=== PATIENT | female | born 1970 | race Caucasian/White ===

== ENCOUNTER 2016-12-05 07:36 | Day surgery (SDC) | payer OTHER ==
[~2016-12-05 07:36] MED LIST: CEFAZOLIN SODIUM 2 GRAM PREMIX 100 ML IV ONE; IV START KIT ONE; KETAMINE HCL UD SYRINGE 100 MG/2 ML IV ONE; LACTATED RINGERS 1,000 ML ONE; MIDAZOLAM HCL 5 MG/5 ML VIAL ONE
[2016-12-05] MEDS ORDERED: CEFAZOLIN SODIUM 2 GRAM PREMIX 100 ML IV PRN (07:45)
[2016-12-05] MEDS ORDERED: BUPIVACAINE (LIPOSOMAL) PF 1.3% 20 ML VIAL IF ONE ×2 (07:50→08:18)
[2016-12-05] MEDS ORDERED: METOCLOPRAMIDE HCL 5 MG/ML 2ML VIAL ONE (08:21)
[2016-12-05] MEDS ORDERED: PROPOFOL 20 ML IV ONE (08:21)
[2016-12-05] MEDS ORDERED: HYDROMORPHONE HCL 2 MG/ML SYRINGE ONE (08:21)
[2016-12-05] MEDS ORDERED: DIPHENHYDRAMINE HCL 50 MG/1 ML VIAL ONE (08:21)
[2016-12-05] MEDS ORDERED: EPHEDRINE SULFATE UD SYR 25 MG 25 MG/5 ML SYRINGE IV ONE (08:44)
[2016-12-05] MEDS ORDERED: PROMETHAZINE HCL 25 MG/ML VIAL IM PRN (08:55)
[2016-12-05] MEDS ORDERED: ONDANSETRON 4 MG/2ML 2 ML VIAL IV PRN ×2 (08:55→11:39)
[2016-12-05] MEDS ORDERED: NALOXONE HCL 0.4 MG/ML VIAL IV PRN (08:55)
[2016-12-05] MEDS ORDERED: MEPERIDINE 25 MG/ML SYRINGE IV PRN (08:55)
[2016-12-05] MEDS ORDERED: ATROPINE SULFATE 0.4 MG/1 ML VIAL IV PRN (08:55)
[2016-12-05] MEDS ORDERED: MORPHINE SULFATE 4 MG/ML SYRINGE IV PRN (08:55)
[2016-12-05] MEDS ORDERED: HYDRALAZINE HCL 20 MG/1 ML VIAL IV PRN (08:55)
[2016-12-05] MEDS ORDERED: LACTATED RINGERS 1,000 ML IV SCH (09:00)
--- NOTE | 2016-12-05 10:01 | MAMM ---
SPECIMEN FILM - IV, BREAST LMITED RT COMPARISON: Right breast ultrasound, 08/30/2016 HISTORY: Right breast lumpectomy for invasive ductal carcinoma. Evaluate lumpectomy specimen. FINDINGS (specimen mammography): Right breast lumpectomy specimen mammogram: There is extremely dense tissue without discernible mass or suspicious calcification. FINDINGS (ultrasound of specimen): The specimen was bisected by Dr. Schneider in at the level of the palpable lump. Sonography identifies the bisected hypoechoic neoplasm. IMPRESSION: 1. The breast cancer is located within the lumpectomy specimen from the right breast, seen only on the ultrasound.
[2016-12-05] MEDS ORDERED: MORPHINE SULFATE 2 MG/ML SYRINGE IV PRN (11:39)
--- NOTE | 2016-12-06 11:29 | OP ---
Ashley Nunn [id number] DATE OF PROCEDURE: 12/05/2016 PREOPERATIVE DIAGNOSIS: Invasive ductal carcinoma 10 o'clock position right breast. POSTOPERATIVE DIAGNOSIS: Invasive ductal carcinoma 10 o'clock position right breast. PROCEDURE: Right partial mastectomy. SURGEON: Ko Schneider M.D. CUSTOM HARVESTER: Yari. ANESTHESIA: Didier, General. INDICATION: This is a 46-year-old female with severe autism who had a palpable abnormality in the upper outer right breast that was biopsied and showed invasive ductal carcinoma. We have elected to proceed with partial mastectomy only. DESCRIPTION OF PROCEDURE: With informed consent from her mother she was brought to the day surgery area and given intramuscular Ketamine. Following that, IV access was obtained and she was taken to the operating room where she was laid supine on the operating room table. General anesthesia was administered. The right breast was prepped and draped in a sterile fashion. The palpable abnormality at 10 o'clock was marked on the skin. It seemed to be fairly superficial. I made an elliptical incision to include some skin. The breast tissue below that was actually quite thickened. We ran into some ectatic ducts along with some milky material. I did send off a blood sample for a test just because of those findings, this was negative. I did a formal lumpectomy down to the chest wall with at least 2 cm margin around where I expected the mass to be. This was difficult with the otherwise thickened benign breast tissue.. Once we had it excised, I took it to radiology. It was difficult to tell in the view box that we had obtained the lesion. I did cut the specimen open and found a palpable abnormality in the mid portion of the specimen with apparent good margins. There was some signs of hematoma directly adjacent to this indicating the biopsy had been done in this area. The specimen had been labeled with a short stitch and a long stitch lateral which was actually posterior as well. The skin would obviously be anterior. This was sent off to pathology. The wound was irrigated. We appeared to have adequate hemostasis. I did separate the breast from the chest wall medially and laterally. We did bring the breast tissue back together in multiple layers with some 2-0 and 3-0 Vicryl. The skin was closed with a running subcuticular 4-0 Monocryl. Some Skinaffix was placed over the incision. Some gauze and a breast binder were placed. She was taken to the recovery room in stable condition. Note was made that needle, instrument, and lap counts were reported as correct at the time of closure. JOB: [id number] CC: Dr. Sienna Doll.
--- NOTE | 2016-12-07 13:33 | SURGPATH ---
[facility] [address] [place] [id number] Patient Name: BELLA RUVALCABA MR#: [id number] : 1970 Gender: F Specimen #: [id number] Collected: 12/05/2016 Received: 12/06/2016 Reported: 12/07/2016 Submitting Phys: RAVIN JI Copy To Phys: [facility] Clinical History / Pre-Operative Diagnosis: RIGHT BREAST MALIGNANT NEOPLASM Specimen Source / Surgical Procedure Performed: RIGHT BREAST TISSUE (SHORT STITCH-SUPERIOR, LONG STITCH-LATERAL) Interpretation: RIGHT BREAST, LUMPECTOMY: - INVASIVE DUCTAL ADENOCARCINOMA, GRADE 1 - STAGE pT1c, pNX - SEE SYNOPTIC REPORT BREAST CANCER CASE SUMMARY: SPECIMEN IDENTIFICATION: Right breast, lumpectomy, without sentinel node TUMOR SITE: 10 o'clock position TUMOR SIZE: Dimension of largest focus of invasion: 2.0 cm TUMOR FOCALITY: Single focus of invasive carcinoma HISTOLOGIC TYPE: Ductal adenocarcinoma TNM DESCRIPTORS: Not applicable PRIMARY TUMOR STAGE: pT1c: Tumor >10 mm but d20 mm in greatest dimension REGIONAL LYMPH NODE STAGE: pNX: Regional lymph nodes cannot be assessed LEANN COMBINED HISTOLOGIC GRADE: Grade 1 (Total score 5 ) TUBULE FORMATION: Moderate - 10% to 75% (score=2) NUCLEAR PLEOMORPHISM: Moderate increase in size (score=2) MITOTIC RATE: Score=1 SKIN INVOLVEMENT: Not involved SKELETAL MUSCLE INVOLVEMENT: Skeletal muscle not present ASSOCIATED DUCTAL CARCINOMA IN SITU: DCIS is present ESTIMATED EXTENT OF DCIS: Greatest dimension: 0.2 cm Number of blocks with DCIS: 1 Number of blocks examined: 12 ARCHITECTURAL PATTERN OF DCIS: Cribriform NUCLEAR GRADE OF DCIS Grade II (intermediate) NECROSIS IN DCIS: Not identified LOBULAR CARCINOMA IN SITU (LCIS): Not identified MARGINS: Margins uninvolved by invasive carcinoma: Distance from closest margin: 5 mm Distance from superior margin: 20 mm Distance from inferior margin: 20 mm Distance from anterior margin: 5 mm Distance from posterior margin: 25 mm Distance from medial margin: 13 mm Distance from lateral margin: 13 mm Margins uninvolved by DCIS: Distance from closest margin: Greater than 10 mm LYMPH NODES: Lymph nodes not sampled RESPONSE TO PRESURGICAL THERAPY IN THE BREAST: No known presurgical therapy RESPONSE TO PRESURGICAL THERAPY IN THE LYMPH NODES: No known presurgical therapy LYMPH VASCULAR INVASION: Not identified DERMAL LYMPH VASCULAR INVASION: Not identified MICROCALCIFICATIONS: Present in both carcinoma and non-neoplastic tissue ANCILLARY STUDIES: ER: 80 Percent, Positive (Estrogen receptor clone [id number]) PgR: 100 Percent, Positive (Progesterone receptor clone 16) HER2: Negative (IHC, clone [id number]) Performed on prior case [id number] ADDITIONAL PATHOLOGIC FINDINGS: Adenosis with lactational change Electronically Signed Out Tanner Johnson M.D. Gross Description: The specimen is received in a formalin filled container labeled with the patient's name and "right breast tissue". SPECIMEN: Right breast lumpectomy Fixation: Time of fixation, nine hours. Tissue(s) included: Right breast tissue with overlying skin Section, unsectioned before receipt: The specimen is been previously incised and partially bisected centrally Weight: 63 g Dimensions: 5.5 cm from superior to inferior, 5.3 cm medial to lateral, 4.3 cm and anterior to posterior Dimensions and description of skin (if included): The vertically oriented ellipse of unremarkable kiran-laird skin is 4.5 cm from superior to inferior, 1.3 cm medial to lateral. Orientation (if specified): Short stitch-superior, long stitch-lateral Margin designation: anterior orange, posterior black, superior blue, inferior green, medial red, lateral yellow. TUMOR: Size: 2 cm from superior to inferior, 1.2 cm medial to lateral, 1 cm from anterior to posterior Descriptive features: Ill-defined, stellate and gritty kiran-laird Status of surgical margins: 0.5 cm-anterior, 1.3 cm-medial and lateral, 2 cm each-superior and inferior, 2.5 cm-posterior Correlation with imaging studies: Not applicable Other(s): The specimen is multiply sectioned perpendicular to superior/inferior axis, into 10 slices, to reveal equal parts of soft lobular adipose tissue and dense, pale gregory fibroglandular tissue. The mass spans slice #4-#7. Sections are submitted from superior to inferior respectively. TISSUE(S) SUBMITTED FOR MICROSCOPIC EVALUATION: A-two perpendicular sections from slice #1, superior end B-anterior/medial fourth from slice #4, including mass C-anterior/lateral fourth from slice #4, including mass D-Posterior/lateral fourth of slice #4 E-posterior/medial fourth from slice #4 F-anterior/medial fourth from slice #5, including mass G-anterior/lateral fourth from slice #5 H-posterior/lateral fourth from slice #5 I-posterior/medial fourth from slice #5 J-anterior/medial fourth from slice #7, including mass K-anterior/lateral fourth from slice #7, including mass L-two perpendicular sections from slice #10, inferior end Indra Hope Microscopic Description: The sections show invasive ductal adenocarcinoma with moderate tubule formation and the cells show moderate nuclear pleomorphism. There are 5 mitotic figures counted within 10 high power butler. There is a focus of intermediate grade ductal carcinoma in situ with a cribriform pattern. The margins are free of invasive and in situ carcinoma. The sonogram tissue shows adenosis and areas of lactational change. 1: [id number], [id number]
== END 2016-12-05 14:24 | disposition home or self-care (01) ==
LOC: SDC 07:36
PROVIDERS: ATTEND Surgery
PROC: 0HBT0ZZ Excision of Right Breast, Open Approach (ICD-10-PCS; principal; 2016-12-05)
DX: C50.411 Malignant neoplasm of upper-outer quadrant of right female breast (principal); Z17.0 Estrogen receptor positive status [ER+]; F84.0 Autistic disorder; F42.9 Obsessive-compulsive disorder, unspecified; Z80.3 Family history of malignant neoplasm of breast
CPT/HCPCS: 19301; 84703; 76098; 76642; J1200; J1170; J2765; J2250; J7120; C9290 ×2; J0690